=== PATIENT | female | born 1965 | race American Indian/Alaskan Native ===

== ENCOUNTER 2019-09-10 12:56 | Emergency (ER) | payer SELFPAY ==
--- NOTE | 2019-09-10 13:13 | Emergency Department Report ---
Blank Doc - Documentation Documentation: 54-year-old female that presents with abdominal pain, n/v, body aches, and wea kness. This initial assessment/diagnostic orders/clinical plan/treatment(s) is/are subject to change based on patient's health status, clinical progression and re- assessment by fellow clinical providers in the ED. Further treatment and workup at subsequent clinical providers discretion. Patient/guardians urged not to elope from the ED as their condition may be serious if not clinically assessed and managed. Initial orders include: 1- Patient sent to [facility] for further evaluation and treatment 2- labs 3- UA
[2019-09-10 14:18] LABS: Basophils # (Auto) 0.1 K/mm3 (0.0-0.1); Eosinophils # (Auto) 0.1 K/mm3 (0.0-0.4); Eosinophils % (Auto) 0.6 % (0.0-4.3); Hematocrit 36.1 % (30.3-42.9); Hemoglobin 12.2 gm/dl (10.1-14.3); Lymphocytes # (Auto) 2.9 K/mm3 (1.2-5.4); Lymphocytes % (Auto) 24.7 % (13.4-35.0); Mean Corpuscular HGB Conc 34 % (30-34); Mean Corpuscular Volume 82 fl (79-97); Monocytes # (Auto) 0.7 K/mm3 (0.0-0.8); Monocytes % (Auto) 6.3 % (0.0-7.3); Platelet Count 339 K/mm3 (140-440); Red Blood Count 4.42 M/mm3 (3.65-5.03); Red Cell Distribution Width 15.1 % (13.2-15.2)
[2019-09-10 14:27] LABS: Calcium 9.8 mg/dL (8.4-10.2)
[2019-09-10] MEDS ORDERED: ONDANSETRON 4 MG/2 ML INJ IV ONE (16:10)
[2019-09-10] MEDS ORDERED: SODIUM CHLORIDE 0.9% 1000 ML 1,000 ML IV ONE (16:10)
[2019-09-10 16:12] LABS: Bacteria,Urine 4+ /HPF (Negative); Bilirubin,Urine NEG (Negative); Blood,Urine MOD (Negative); Color,Urine Amber (Yellow); Mucus,Urine FEW /HPF
[2019-09-10 16:15] LABS: WBC,Urine > 182.0 /HPF (0.0-6.0)
[2019-09-10] MEDS ORDERED: cefTRIAXone/NS 1 GM/50 ML 1 GM/50 ML BAG IV ONE (16:33)
--- NOTE | 2019-09-10 17:16 | Emergency Department Report ---
ED N/V/D HPI - General Chief complaint: Weakness Stated complaint: N/V/WEAKNESS Time Seen by Provider: 09/10/19 13:11 Source: patient Mode of arrival: Wheelchair Limitations: No Limitations - History of Present Illness Initial comments: 54-year-old female with a past medical history of diabetes, bipolar, schizophrenia presents to the hospital for nausea, vomiting, weakness this morning. Patient is unable to provide any history of present illness due to chronic communication difficulty secondary to underlying psychiatric disorder and psychosis. Her brother/spiral spring winder provides history of present illness. Apparently they recently moved here from [place]. Patient ran out of her medications 2 days ago and does not have any more medication and is in the process of activating her insurance here in [place]. This morning patient developed nausea, vomiting, and by mouth intolerance with weakness. Initial BP in triage 98/46 but repeat showed a pressure 156/68 without any intervention. Initial Accu-Chek 99. Patient is meds include midodrine 5mg qd Atorvastatin 10 mg daily, Haldol 5 mg daily, and metformin 1000 mg twice a day. - Related Data Previous Rx's Medication Instructions Recorded Last Taken Type AtorvaSTATin 10 mg PO QHS #30 tab 09/10/19 Unknown Rx Haloperidol [Haldol] 5 mg PO DAILY #30 tablet 09/10/19 Unknown Rx Midodrine [Proamatine] 5 mg PO DAILY #30 tablet 09/10/19 Unknown Rx Nitrofurantoin [place]/M-Cryst 100 mg PO Q12HR #10 capsule 09/10/19 Unknown Rx [Macrobid CAP] Promethazine [Phenergan] 25 mg PO Q6HR PRN #20 tab 09/10/19 Unknown Rx metFORMIN [Glucophage] 500 mg PO BID #60 tablet 09/10/19 Unknown Rx Allergies Allergy/AdvReac Type Severity Reaction Status Date / Time No Known Allergies Allergy Verified 09/10/19 20:28 ED Review of Systems ROS: Stated complaint: N/V/WEAKNESS Other details as noted in HPI Comment: All other systems reviewed and negative ED Past Medical Hx - Past Medical History Previous Medical History?: Yes Hx Diabetes: Yes Hx Psychiatric Treatment: Yes (Bi Polar Schizophrenia) - Surgical History Past Surgical History?: No - Social History Smoking Status: Never Smoker Substance Use Type: None - Medications Home Medications: Home Medications Medication Instructions Recorded Confirmed Last Taken Type AtorvaSTATin 10 mg PO QHS #30 tab 09/10/19 Unknown Rx Haloperidol [Haldol] 5 mg PO DAILY #30 tablet 09/10/19 Unknown Rx Midodrine [Proamatine] 5 mg PO DAILY #30 tablet 09/10/19 Unknown Rx Nitrofurantoin [place]/M-Cryst 100 mg PO Q12HR #10 capsule 09/10/19 Unknown Rx [Macrobid CAP] Promethazine [Phenergan] 25 mg PO Q6HR PRN #20 tab 09/10/19 Unknown Rx metFORMIN [Glucophage] 500 mg PO BID #60 tablet 09/10/19 Unknown Rx ED Physical Exam - General Limitations: No Limitations - Other Other exam information: General: No acute distress Head: Atraumatic Eyes: normal appearance ENT: Moist mucous membranes Neck: Normal appearance, no midline tenderness Chest: Mild resting tachycardia CV: Regular rate and rhythm Abdomen: Soft, normal bowel sounds, nontender, nondistended, no rebound or guarding Back: Normal inspection Extremity: Normal inspection infection, full range of motion Neuro: Alert, oriented to self and hospital, no facial asymmetry, speech clear, no gross motor sensory deficit Psych: Appropriate behavior Skin: No rash ED Course Vital Signs 09/10/19 09/10/19 09/10/19 13:11 15:13 17:00 Temperature 97.5 F L Pulse Rate 104 H 95 H 100 H Respiratory 16 18 Rate Blood Pressure 98/46 Blood Pressure 156/58 186/84 [Right] O2 Sat by Pulse 97 95 96 Oximetry 09/10/19 09/10/19 09/10/19 19:56 20:37 20:40 Temperature Pulse Rate 101 H 102 H 102 H Respiratory 16 Rate Blood Pressure 233/87 Blood Pressure 196/81 233/87 [Right] O2 Sat by Pulse 97 99 Oximetry ED Medical Decision Making - Lab Data Result diagrams: 09/10/19 13:47 09/10/19 13:47 Lab Results 09/10/19 09/10/19 09/10/19 Range/Units 13:14 13:47 13:47 WBC 11.6 H (4.5-11.0) K/mm3 RBC 4.42 (3.65-5.03) M/mm3 Hgb 12.2 (10.1-14.3) gm/dl Hct 36.1 (30.3-42.9) % MCV 82 (79-97) fl MCH 28 (28-32) pg MCHC 34 (30-34) % RDW 15.1 (13.2-15.2) % Plt Count 339 (140-440) K/mm3 Lymph % (Auto) 24.7 (13.4-35.0) % [place] % (Auto) 6.3 (0.0-7.3) % Eos % (Auto) 0.6 (0.0-4.3) % Baso % (Auto) 1.0 (0.0-1.8) % Lymph # 2.9 (1.2-5.4) K/mm3 [place] # 0.7 (0.0-0.8) K/mm3 Eos # 0.1 (0.0-0.4) K/mm3 Baso # 0.1 (0.0-0.1) K/mm3 Seg Neutrophils % 67.4 (40.0-70.0) % Seg Neutrophils # 7.8 H (1.8-7.7) K/mm3 VBG pH (7.320-7.420) Sodium 141 (137-145) mmol/L Potassium 4.1 (3.6-5.0) mmol/L Chloride 101.6 (98-107) mmol/L Carbon Dioxide 22 (22-30) mmol/L Anion Gap 22 mmol/L BUN 23 H (7-17) mg/dL Creatinine 1.0 (0.7-1.2) mg/dL Estimated GFR 57 ml/min BUN/Creatinine Ratio 23 % Glucose 113 H (65-100) mg/dL POC Glucose 99 (70-105) Calcium 9.8 (8.4-10.2) mg/dL Total Bilirubin 0.50 (0.1-1.2) mg/dL AST 13 (5-40) units/L ALT 6 L (7-56) units/L Alkaline Phosphatase 66 (35-129) units/L Total Protein 7.4 (6.3-8.2) g/dL Albumin 4.0 (3.9-5) g/dL Albumin/Globulin Ratio 1.2 % Lipase 31 (13-60) units/L Urine Color (Yellow) Urine Turbidity (Clear) Urine pH (5.0-7.0) Ur Specific [place] (1.003-1.030) Urine Protein (Negative) mg/dL Urine Glucose (UA) (Negative) mg/dL Urine Ketones (Negative) mg/dL Urine Blood (Negative) Urine Nitrite (Negative) Urine Bilirubin (Negative) Urine Urobilinogen (<2.0) mg/dL Ur Leukocyte Esterase (Negative) Urine WBC (Auto) (0.0-6.0) /HPF Urine RBC (Auto) (0.0-6.0) /HPF Urine Bacteria (Auto) (Negative) /HPF Urine WBC Clumps /HPF Urine Mucus /HPF 09/10/19 09/10/19 Range/Units 13:47 15:55 WBC (4.5-11.0) K/mm3 RBC (3.65-5.03) M/mm3 Hgb (10.1-14.3) gm/dl Hct (30.3-42.9) % MCV (79-97) fl MCH (28-32) pg MCHC (30-34) % RDW (13.2-15.2) % Plt Count (140-440) K/mm3 Lymph % (Auto) (13.4-35.0) % [place] % (Auto) (0.0-7.3) % Eos % (Auto) (0.0-4.3) % Baso % (Auto) (0.0-1.8) % Lymph # (1.2-5.4) K/mm3 [place] # (0.0-0.8) K/mm3 Eos # (0.0-0.4) K/mm3 Baso # (0.0-0.1) K/mm3 Seg Neutrophils % (40.0-70.0) % Seg Neutrophils # (1.8-7.7) K/mm3 VBG pH 7.395 (7.320-7.420) Sodium (137-145) mmol/L Potassium (3.6-5.0) mmol/L Chloride (98-107) mmol/L Carbon Dioxide (22-30) mmol/L Anion Gap mmol/L BUN (7-17) mg/dL Creatinine (0.7-1.2) mg/dL Estimated GFR ml/min BUN/Creatinine Ratio % Glucose (65-100) mg/dL POC Glucose (70-105) Calcium (8.4-10.2) mg/dL Total Bilirubin (0.1-1.2) mg/dL AST (5-40) units/L ALT (7-56) units/L Alkaline Phosphatase (35-129) units/L Total Protein (6.3-8.2) g/dL Albumin (3.9-5) g/dL Albumin/Globulin Ratio % Lipase (13-60) units/L Urine Color [place] (Yellow) Urine Turbidity Turbid (Clear) Urine pH 5.0 (5.0-7.0) Ur Specific [place] 1.016 (1.003-1.030) Urine Protein 100 mg/dl (Negative) mg/dL Urine Glucose (UA) Neg (Negative) mg/dL Urine Ketones Neg (Negative) mg/dL Urine Blood Mod (Negative) Urine Nitrite Neg (Negative) Urine Bilirubin Neg (Negative) Urine Urobilinogen 4.0 (<2.0) mg/dL Ur Leukocyte Esterase Lg (Negative) Urine WBC (Auto) > 182.0 H (0.0-6.0) /HPF Urine RBC (Auto) 84.0 (0.0-6.0) /HPF Urine Bacteria (Auto) 4+ (Negative) /HPF Urine WBC Clumps 3+ /HPF Urine Mucus Few /HPF - Medical Decision Making Patient tolerated by mouth intake in the ED after treatment. She received normal saline for mild dehydration and Zofran as well as IV Rocephin for UTI. She will be discharged once the medications are complete. Patient is metformin dose was decreased to 500 twice a day since she has a normal glucose today. Other meds were refilled good rx downloaded by brother to assist with absorbability of meds - Differential Diagnosis dka, uti, dehydration, psychosis Critical Care Time: No Critical care attestation.: If time is entered above; I have spent that time in minutes in the direct care of this critically ill patient, excluding procedure time. ED Disposition Clinical Impression: UTI (urinary tract infection), Dehydration, Schizophrenia, Medication refill, Noncompliance with medication regimen Disposition: TO HOME OR SELFCARE Is pt being admited?: No Does the pt Need Aspirin: No Condition: Stable Instructions: Dehydration (ED), Urinary Tract Infection in Women (ED) Additional Instructions: Take the medication as prescribed. Follow-up with your doctor or doctor/clinic provided. Return if symptoms worsen as indicated by your discharge instructions. Medications were refill. Your dose of metformin was changed from 1000 mg twice a day to 500 mg twice a day since your sugar was normal today. Your sugar is running high and then dose may be increased back up to 1000 mg by your doctor. Follow-up with your doctor for further medication management. Prescriptions: AtorvaSTATin 10 mg PO QHS #30 tab metFORMIN [Glucophage] 500 mg PO BID #60 tablet Haloperidol [Haldol] 5 mg PO DAILY #30 tablet Nitrofurantoin [place]/M-Cryst [Macrobid CAP] 100 mg PO Q12HR #10 capsule Promethazine [Phenergan] 25 mg PO Q6HR PRN #20 tab PRN Reason: Nausea Midodrine [Proamatine] 5 mg PO DAILY #30 tablet Referrals: JAMES JOE MD [Primary Care Provider] - 3-5 Days ALBERTO WILDER MD [Staff Physician] - 3-5 Days Time of Disposition: 18:21
[2019-09-10] MEDS ORDERED: cloNIDine 0.2 MG TAB ONE (20:29)
[2019-09-10] MEDS ORDERED: cloNIDine 0.2 MG TAB PO ONE (20:36)
[2019-09-10 20:37] VITALS: BP 233/87
== END 2019-09-10 20:40 | disposition home or self-care (01) ==
LOC: ED 12:56
DX: N39.0 Urinary tract infection, site not specified (principal); E86.0 Dehydration; F20.9 Schizophrenia, unspecified; Z91.14 Patient's other noncompliance with medication regimen; E11.9 Type 2 diabetes mellitus without complications; F31.9 Bipolar disorder, unspecified
CPT/HCPCS: 36415; 80053; 81001; 82805; 82962; 83690; 85025; 96365; 96375; 99284; J0696; J2405; J7030

== ENCOUNTER 2019-09-17 02:18 | Emergency (ER) | payer SELFPAY ==
[2019-09-17 03:14] LABS: BUN/Creatinine Ratio 15; Blood Urea Nitrogen 17 mg/dL (7-17); Calcium 9.6 mg/dL (8.4-10.2); Hemolysis Index 24
[2019-09-17 03:40] LABS: Basophils # (Auto) 0.1 K/mm3 (0.0-0.1); Basophils % (Auto) 1.2 % (0.0-1.8); Eosinophils # (Auto) 0.1 K/mm3 (0.0-0.4); Eosinophils % (Auto) 1.3 % (0.0-4.3); Hemoglobin 12.5 gm/dl (10.1-14.3); Lymphocytes # (Auto) 3.2 K/mm3 (1.2-5.4); Lymphocytes % (Auto) 34.2 % (13.4-35.0); Mean Corpuscular HGB Conc 34 % (30-34); Mean Corpuscular Volume 83 fl (79-97); Monocytes # (Auto) 0.6 K/mm3 (0.0-0.8); Monocytes % (Auto) 6.7 % (0.0-7.3); Platelet Count 323 K/mm3 (140-440); Red Blood Count 4.44 M/mm3 (3.65-5.03); Red Cell Distribution Width 15.4 % (13.2-15.2)
--- NOTE | 2019-09-17 03:54 | Emergency Department Report ---
ED Chest Pain HPI - General Chief Complaint: Chest Pain Stated Complaint: CHEST PAIN Time Seen by Provider: 09/17/19 03:20 Source: patient, family Mode of arrival: Wheelchair Limitations: Physical Limitation - History of Present Illness Initial Comments: 54-year-old female with history of diabetes, bipolar, schizophrenia, presents to ED with complaint of chest pain. Patient's brother, who is patient's strip tank tender, states patient reported that she was having chest pain, so he brought her to the emergency room. Patient currently states she does not remember ever having chest pain, denies having any chest pain at this time. Patient is asleep on the stretcher. Brother denies patient has appeared to have any shortness of breath, denies any nausea or vomiting. MD Complaint: chest pain -: This morning Onset: during rest Consistency: now resolved re: denies: nausea, vomting, dyspnea - Related Data Previous Rx's Medication Instructions Recorded Last Taken Type AtorvaSTATin 10 mg PO QHS #30 tab 09/10/19 Unknown Rx Haloperidol [Haldol] 5 mg PO DAILY #30 tablet 09/10/19 Unknown Rx Midodrine [Proamatine] 5 mg PO DAILY #30 tablet 09/10/19 Unknown Rx Nitrofurantoin [place]/M-Cryst 100 mg PO Q12HR #10 capsule 09/10/19 Unknown Rx [Macrobid CAP] Promethazine [Phenergan] 25 mg PO Q6HR PRN #20 tab 09/10/19 Unknown Rx metFORMIN [Glucophage] 500 mg PO BID #60 tablet 09/10/19 Unknown Rx Allergies Allergy/AdvReac Type Severity Reaction Status Date / Time Penicillins Allergy Hives Verified 09/17/19 02:21 Heart Score - HEART Score History: Slightly suspicious EKG: Normal Age: 45-65 Risk factors: 1-2 risk factors Troponin: < normal limit HEART Score: 2 ED Review of Systems ROS: Stated complaint: CHEST PAIN Other details as noted in HPI Comment: All other systems reviewed and negative Constitutional: denies: fever Respiratory: denies: shortness of breath Cardiovascular: chest pain Gastrointestinal: denies: vomiting ED Past Medical Hx - Past Medical History Previous Medical History?: Yes Hx Hypertension: Yes Hx Diabetes: Yes Hx Psychiatric Treatment: Yes (BiPolar, Schizophrenia) Additional medical history: blind - Surgical History Past Surgical History?: Yes Additional Surgical History: Finger amputation. Toe ambulation on right foot - Social History Smoking Status: Never Smoker Substance Use Type: None - Medications Home Medications: Home Medications Medication Instructions Recorded Confirmed Last Taken Type AtorvaSTATin 10 mg PO QHS #30 tab 09/10/19 Unknown Rx Haloperidol [Haldol] 5 mg PO DAILY #30 tablet 09/10/19 Unknown Rx Midodrine [Proamatine] 5 mg PO DAILY #30 tablet 09/10/19 Unknown Rx Nitrofurantoin [place]/M-Cryst 100 mg PO Q12HR #10 capsule 09/10/19 Unknown Rx [Macrobid CAP] Promethazine [Phenergan] 25 mg PO Q6HR PRN #20 tab 09/10/19 Unknown Rx metFORMIN [Glucophage] 500 mg PO BID #60 tablet 09/10/19 Unknown Rx ED Physical Exam - General Limitations: Physical Limitation General appearance: alert, in no apparent distress - Head Head exam: Present: atraumatic, normocephalic - Eye Eye exam: Present: normal appearance - ENT ENT exam: Present: mucous membranes moist - Neck Neck exam: Present: normal inspection - Respiratory Respiratory exam: Present: normal lung sounds bilaterally. Absent: respiratory distress - Cardiovascular Cardiovascular Exam: Present: regular rate, normal rhythm - GI/Abdominal GI/Abdominal exam: Present: soft. Absent: distended, tenderness - Extremities Exam Extremities exam: Present: normal inspection - Neurological Exam Neurological exam: Present: alert, altered (at baseline per strip tank tender) - Psychiatric Psychiatric exam: Present: normal affect, normal mood - Skin Skin exam: Present: warm, dry, intact, normal color ED Course Vital Signs 09/17/19 09/17/19 09/17/19 02:23 03:56 04:02 Temperature 97.5 F L Pulse Rate 99 H 99 H 99 H Respiratory 14 17 Rate Blood Pressure 156/50 203/88 Blood Pressure 203/88 [Left] O2 Sat by Pulse 99 99 Oximetry 09/17/19 09/17/19 04:18 05:32 Temperature Pulse Rate 91 H Respiratory 14 16 Rate Blood Pressure Blood Pressure 151/64 [Left] O2 Sat by Pulse 99 99 Oximetry ED Medical Decision Making - Lab Data Result diagrams: 09/17/19 03:28 09/17/19 02:32 - EKG Data -: EKG Interpreted by Ca EKG shows normal: sinus rhythm, axis, intervals, QRS complexes, ST-T waves Rate: normal - EKG Data Interpretation: no acute changes - Radiology Data Radiology results: report reviewed, image reviewed - Medical Decision Making Patient not only denies chest pain currently, but does not remember having any chest pain earlier. Patient comfortable, asleep on stretcher. EKG unremarkable, Troponin negative x2. Vitals are stable, BP improved without intervention. WIll dischrge home. Outpatient f/u advised. Return precautions given. - Differential Diagnosis ACS, chest wall pain, pneumonia Critical care attestation.: If time is entered above; I have spent that time in minutes in the direct care of this critically ill patient, excluding procedure time. ED Disposition Clinical Impression: Chest pain Disposition: TO HOME OR SELFCARE Is pt being admited?: No Condition: Stable Instructions: Chest Pain (ED) Referrals: PHUONG WEISS MD [Primary Care Provider] - 3-5 Days [facility] [Provider Group] - 3-5 Days JOSELITO FUENTES MD [Staff Physician] - 3-5 Days ALBERTO WILDER MD [Staff Physician] - 3-5 Days Time of Disposition: 05:56
[2019-09-17] MEDS ORDERED: cloNIDine 0.1 MG TAB ONE (04:01)
[2019-09-17] MEDS ORDERED: cloNIDine 0.1 MG TAB PO ONE (04:01)
--- NOTE | 2019-09-17 05:30 | XRay Report ---
CHEST 1 VIEW 09/17/2019 2:54 AM INDICATION / CLINICAL INFORMATION: Chest Pain. COMPARISON: None available. FINDINGS: SUPPORT DEVICES: None. HEART / MEDIASTINUM: No significant abnormality. LUNGS / PLEURA: No significant pulmonary or pleural abnormality. No pneumothorax. ADDITIONAL FINDINGS: No significant additional findings. IMPRESSION: 1. No acute abnormality of the chest. Signer Name: Gerardo Castellano MD Signed: 09/17/2019 5:25 AM Workstation Name: [id number]
[2019-09-17 05:33] VITALS: BP 151/64
== END 2019-09-17 06:05 | disposition home or self-care (01) ==
LOC: ED 02:18
DX: R07.89 Other chest pain (principal); I10 Essential (primary) hypertension; E11.9 Type 2 diabetes mellitus without complications; F31.9 Bipolar disorder, unspecified; Z98.890 Other specified postprocedural states; Z79.899 Other long term (current) drug therapy; Z88.0 Allergy status to penicillin
CPT/HCPCS: 36415; 71045; 80048; 84484; 85025; 93005; 93010

== ENCOUNTER 2019-10-15 15:22 | Emergency (ER) | payer SELFPAY ==
[2019-10-15 16:05] VITALS: BP 102/46
--- NOTE | 2019-10-15 16:13 | Event Note ---
ED Screening Note ED Screening Note: FREQ FALLS CO L HIP PAIN FALL THIS AM PMH MENTAL CHALLENGE DM HTN DEMENTIA RX UNKNOWN PCP NONE GETS CARE IN ER This initial assessment/diagnostic orders/clinical plan/treatment(s) is/are subject to change based on patients health status, clinical progression and re- assessment by fellow clinical providers in the ED. Further treatment and workup at subsequent clinical providers discretion. Patient/guardian urged not to elope from the ED as their condition may be serious if not clinically assessed and managed. Initial orders include: LABS XRAY HIP UA
[2019-10-15 16:50] LABS: Basophils # (Auto) 0.1 K/mm3 (0.0-0.1); Eosinophils % (Auto) 9.2 % (0.0-4.3); Hematocrit 33.1 % (30.3-42.9); Hemoglobin 11.3 gm/dl (10.1-14.3); Lymphocytes # (Auto) 2.9 K/mm3 (1.2-5.4); Lymphocytes % (Auto) 27.7 % (13.4-35.0); Mean Corpuscular HGB Conc 34 % (30-34); Mean Corpuscular Volume 83 fl (79-97); Monocytes # (Auto) 0.8 K/mm3 (0.0-0.8); Monocytes % (Auto) 7.5 % (0.0-7.3); Platelet Count 258 K/mm3 (140-440); Red Blood Count 3.98 M/mm3 (3.65-5.03); Red Cell Distribution Width 15.1 % (13.2-15.2)
--- NOTE | 2019-10-15 17:00 | XRay Report ---
LEFT HIP 2 VIEWS INDICATION / CLINICAL INFORMATION: Left hip pain after fall this morning. COMPARISON: None available. FINDINGS: BONES and JOINT(S): No acute fracture or subluxation. No significant arthritis. SOFT TISSUES: A probable calcified uterine fibroid is noted along the midline of the pelvis. There is severe generalized atherosclerosis. ADDITIONAL FINDINGS: None. IMPRESSION: 1. No acute abnormality of the left hip. 2. Additional findings as above. Signer Name: Gerardo Castellano MD Signed: 10/15/2019 4:56 PM Workstation Name: [id number]
[2019-10-15 17:11] LABS: Alanine Aminotransferase 9 units/L (7-56); Albumin 3.7 g/dL (3.9-5); BUN/Creatinine Ratio 19; Blood Urea Nitrogen 15 mg/dL (7-17); Calcium 9.3 mg/dL (8.4-10.2); Hemolysis Index 5
--- NOTE | 2019-10-15 18:57 | Emergency Department Report ---
ED General Adult HPI - General Chief complaint: Fall Stated complaint: MEDICATION REFIL Time Seen by Provider: 10/15/19 16:12 Source: patient Mode of arrival: Wheelchair Limitations: Altered Mental Status, Physical Limitation - History of Present Illness Initial comments: Patient presents to emergency department for chief complaint left hip pain after a fall. Patient states she hit her left hip against the table. Patient denies hitting her head or loss consciousness. Patient is also here to get her refill of her medications. Patient denies chest pain, stress breath, or abdominal pain. -: Sudden Location: lower extremity Radiation: non-radiation Severity scale (0 -10): 2 Quality: aching Consistency: constant Improves with: rest Worsens with: movement Associated Symptoms: denies other symptoms Treatments Prior to Arrival: none - Related Data Previous Rx's Medication Instructions Recorded Last Taken Type AtorvaSTATin 10 mg PO QHS #30 tab 09/10/19 Unknown Rx Midodrine [Proamatine] 5 mg PO DAILY #30 tablet 09/10/19 Unknown Rx Nitrofurantoin [place]/M-Cryst 100 mg PO Q12HR #10 capsule 09/10/19 Unknown Rx [Macrobid CAP] Promethazine [Phenergan] 25 mg PO Q6HR PRN #20 tab 09/10/19 Unknown Rx haloperidoL [Haldol] 5 mg PO DAILY #30 tablet 09/10/19 Unknown Rx metFORMIN [Glucophage] 500 mg PO BID #60 tablet 09/10/19 Unknown Rx metFORMIN [Glucophage] 500 mg PO BID #30 tablet 10/15/19 Unknown Rx traMADoL [Ultram] 50 mg PO Q6HR PRN #20 tablet 10/15/19 Unknown Rx Allergies Allergy/AdvReac Type Severity Reaction Status Date / Time Penicillins Allergy Hives Verified 09/17/19 02:21 ED Review of Systems ROS: Stated complaint: MEDICATION REFIL Other details as noted in HPI Comment: All other systems reviewed and negative Constitutional: denies: chills, fever Eyes: denies: eye pain, eye discharge, vision change ENT: denies: ear pain, throat pain Respiratory: denies: cough, shortness of breath, wheezing Cardiovascular: denies: chest pain, palpitations Endocrine: no symptoms reported Gastrointestinal: denies: abdominal pain, nausea, diarrhea Genitourinary: denies: urgency, dysuria, discharge Musculoskeletal: denies: back pain, joint swelling, arthralgia Skin: denies: rash, lesions Neurological: denies: headache, weakness, paresthesias Psychiatric: denies: anxiety, depression Hematological/Lymphatic: denies: easy bleeding, easy bruising ED Past Medical Hx - Past Medical History Hx Hypertension: Yes Hx Diabetes: Yes Hx Psychiatric Treatment: Yes (BiPolar, Schizophrenia) Additional medical history: blind - Surgical History Additional Surgical History: Finger amputation. Toe ambulation on right foot - Social History Smoking Status: Never Smoker Substance Use Type: None - Medications Home Medications: Home Medications Medication Instructions Recorded Confirmed Last Taken Type AtorvaSTATin 10 mg PO QHS #30 tab 09/10/19 Unknown Rx Midodrine [Proamatine] 5 mg PO DAILY #30 tablet 09/10/19 Unknown Rx Nitrofurantoin [place]/M-Cryst 100 mg PO Q12HR #10 capsule 09/10/19 Unknown Rx [Macrobid CAP] Promethazine [Phenergan] 25 mg PO Q6HR PRN #20 tab 09/10/19 Unknown Rx haloperidoL [Haldol] 5 mg PO DAILY #30 tablet 09/10/19 Unknown Rx metFORMIN [Glucophage] 500 mg PO BID #60 tablet 09/10/19 Unknown Rx metFORMIN [Glucophage] 500 mg PO BID #30 tablet 10/15/19 Unknown Rx traMADoL [Ultram] 50 mg PO Q6HR PRN #20 tablet 10/15/19 Unknown Rx ED Physical Exam - General Limitations: Altered Mental Status, Physical Limitation General appearance: alert, in no apparent distress - Head Head exam: Present: atraumatic, normocephalic - Eye Eye exam: Present: normal appearance - ENT ENT exam: Present: mucous membranes moist - Neck Neck exam: Present: normal inspection - Respiratory Respiratory exam: Present: normal lung sounds bilaterally. Absent: respiratory distress - Cardiovascular Cardiovascular Exam: Present: regular rate, normal rhythm. Absent: systolic murmur, diastolic murmur, rubs, gallop - GI/Abdominal GI/Abdominal exam: Present: soft, normal bowel sounds. Absent: distended, tenderness - Extremities Exam Extremities exam: Present: normal inspection, other (ttp left hip) - Back Exam Back exam: Present: normal inspection - Neurological Exam Neurological exam: Present: alert, oriented X3, CN II-XII intact. Absent: motor sensory deficit - Psychiatric Psychiatric exam: Present: normal affect, normal mood - Skin Skin exam: Present: warm, dry, intact, normal color. Absent: rash ED Course Vital Signs 10/15/19 10/15/19 16:04 16:12 Temperature 97.5 F L 97.5 F L Pulse Rate 104 H 98 H Respiratory 19 18 Rate Blood Pressure 102/46 102/46 O2 Sat by Pulse 99 Oximetry ED Medical Decision Making - Lab Data Result diagrams: 10/15/19 16:39 10/15/19 16:39 Lab Results 10/15/19 10/15/19 Range/Units 16:39 16:39 WBC 10.6 (4.5-11.0) K/mm3 RBC 3.98 (3.65-5.03) M/mm3 Hgb 11.3 (10.1-14.3) gm/dl Hct 33.1 (30.3-42.9) % MCV 83 (79-97) fl MCH 28 (28-32) pg MCHC 34 (30-34) % RDW 15.1 (13.2-15.2) % Plt Count 258 (140-440) K/mm3 Lymph % (Auto) 27.7 (13.4-35.0) % [place] % (Auto) 7.5 H (0.0-7.3) % Eos % (Auto) 9.2 H (0.0-4.3) % Baso % (Auto) 1.0 (0.0-1.8) % Lymph # 2.9 (1.2-5.4) K/mm3 [place] # 0.8 (0.0-0.8) K/mm3 Eos # 1.0 H (0.0-0.4) K/mm3 Baso # 0.1 (0.0-0.1) K/mm3 Seg Neutrophils % 54.6 (40.0-70.0) % Seg Neutrophils # 5.8 (1.8-7.7) K/mm3 Sodium 142 (137-145) mmol/L Potassium 3.4 L (3.6-5.0) mmol/L Chloride 102.6 (98-107) mmol/L Carbon Dioxide 23 (22-30) mmol/L Anion Gap 20 mmol/L BUN 15 (7-17) mg/dL Creatinine 0.8 (0.7-1.2) mg/dL Estimated GFR > 60 ml/min BUN/Creatinine Ratio 19 % Glucose 136 H (65-100) mg/dL Calcium 9.3 (8.4-10.2) mg/dL Total Bilirubin 0.30 (0.1-1.2) mg/dL AST 15 (5-40) units/L ALT 9 (7-56) units/L Alkaline Phosphatase 59 (35-129) units/L Total Protein 6.5 (6.3-8.2) g/dL Albumin 3.7 L (3.9-5) g/dL Albumin/Globulin Ratio 1.3 % - Radiology Data Radiology results: report reviewed - Medical Decision Making Discussed results with patient and brother Critical care attestation.: If time is entered above; I have spent that time in minutes in the direct care of this critically ill patient, excluding procedure time. ED Disposition Clinical Impression: Fall, Leg pain, Medication refill Disposition: TO HOME OR SELFCARE Is pt being admited?: No Does the pt Need Aspirin: No Condition: Stable Instructions: Fall Prevention (ED) Additional Instructions: return if worse Prescriptions: metFORMIN [Glucophage] 500 mg PO BID #30 tablet Referrals: PRIMARY CARE, [Primary Care Provider] - 3-5 Days [facility] [Provider Group] - 3-5 Days [facility] [Provider Group] - 3-5 Days [facility] [Outside] - 3-5 Days [facility] [Provider Group] - 3-5 Days [facility] [Provider Group] - 3-5 Days Time of Disposition: 19:02
== END 2019-10-15 19:42 | disposition home or self-care (01) ==
LOC: ED 15:22
DX: M25.552 Pain in left hip (principal); M79.605 Pain in left leg; I10 Essential (primary) hypertension; E11.9 Type 2 diabetes mellitus without complications; F03.90 Unspecified dementia, unspecified severity, without behavioral disturbance, psychotic disturbance, mood disturbance, and anxiety; F25.0 Schizoaffective disorder, bipolar type; Z76.0 Encounter for issue of repeat prescription; Z79.899 Other long term (current) drug therapy; Z88.0 Allergy status to penicillin; W01.190A Fall on same level from slipping, tripping and stumbling with subsequent striking against furniture, initial encounter; Y93.89 Activity, other specified; Y92.89 Other specified places as the place of occurrence of the external cause; Y99.8 Other external cause status
CPT/HCPCS: 36415; 80053; 85025

== ENCOUNTER 2021-07-19 13:20 | Outpatient (CLI) | payer MEDICAID ==
[2021-07-19] MEDS ORDERED: LIDOCAINE (4%) 40 MG/ML TOPICAL SOLN 50 ML BOTTLE TP ONE (13:43)
[2021-07-19] MEDS ORDERED: SODIUM HYPOCHLORITE, DAKIN'S FULL STRENGTH (0.5%) 473 ML TOPICAL SOLN TP ONE (15:00)
[2021-07-19] MEDS ORDERED: SILVER NITRATE APPLICATOR 1 EA TP ONE (15:00)
[2021-07-19] MEDS ORDERED: VITAMIN A & D OINT 56.7 GM TP SCH (16:00)
== END 2021-07-19 13:21 | disposition home or self-care (01) ==
LOC: WOUND 13:20
PROVIDERS: ATTEND Surgery
DX: E11.621 Type 2 diabetes mellitus with foot ulcer (principal); L97.516 Non-pressure chronic ulcer of other part of right foot with bone involvement without evidence of necrosis; I10 Essential (primary) hypertension; F03.90 Unspecified dementia, unspecified severity, without behavioral disturbance, psychotic disturbance, mood disturbance, and anxiety
CPT/HCPCS: 11043; 82962; A6250; G0463; 99214

== ENCOUNTER 2021-11-22 08:00 | Outpatient (CLI) | payer MEDICAID ==
[2021-11-22] MEDS ORDERED: SODIUM HYPOCHLORITE, DAKIN'S FULL STRENGTH (0.5%) 473 ML TOPICAL SOLN TP ONE (15:00)
[2021-11-22] MEDS ORDERED: LIDOCAINE (4%) 40 MG/ML TOPICAL SOLN 50 ML BOTTLE TP ONE (15:01)
[2021-11-22] MEDS ORDERED: SILVER NITRATE APPLICATOR 1 EA TP ONE (15:52)
== END 2021-11-22 09:00 | disposition home or self-care (01) ==
LOC: WOUND 08:00
PROVIDERS: ATTEND Surgery
DX: E11.621 Type 2 diabetes mellitus with foot ulcer (principal); I70.261 Atherosclerosis of native arteries of extremities with gangrene, right leg; L97.514 Non-pressure chronic ulcer of other part of right foot with necrosis of bone; E11.69 Type 2 diabetes mellitus with other specified complication; M86.671 Other chronic osteomyelitis, right ankle and foot; I10 Essential (primary) hypertension; F03.90 Unspecified dementia, unspecified severity, without behavioral disturbance, psychotic disturbance, mood disturbance, and anxiety; Z79.899 Other long term (current) drug therapy
CPT/HCPCS: 82962